=== PATIENT | male | born 1970 | race Caucasian/White ===

== ENCOUNTER 2024-06-17 15:36 | Emergency (ER) | payer BC, OTHER ==
[~2024-06-17] VITALS: Ht 188 cm; Wt 117.9 kg
--- NOTE | 2024-06-17 15:45 | EKG ---
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
[2024-06-17 16:00] VITALS: TEMP 98.5
[2024-06-17 16:10] LABS: BASOPHILS # (AUTO) 0.08 K/uL (0.00-0.20); BASOPHILS % (AUTO) 0.8 % (0.0-5.0); EOSINOPHILS # (AUTO) 0.08 K/uL (0.00-0.70); EOSINOPHILS % (AUTO) 0.8 % (0.0-8.0); HEMATOCRIT 46.4 % (42-54); IMMATURE GRANULOCYTE ABSOLUTE 0.03 K/uL (0-1); LYMPHOCYTES # (AUTO) 2.9 K/uL (1.0-4.8); LYMPHOCYTES % (AUTO) 27.3 % (21.0-51.0); MEAN CORPUSCULAR HEMOGLOBIN 28.1 pg (27.0-33.0); MEAN CORPUSCULAR HGB CONC 32.3 g/dL (32.0-36.0); MEAN CORPUSCULAR VOLUME 87.1 fL (79-99); MONOCYTES # (AUTO) 0.9 K/uL (0.1-1.0); MONOCYTES % (AUTO) 8.1 % (3.0-13.0); NEUTROPHILS # (AUTO) 6.6 K/uL (1.8-7.7); NEUTROPHILS % (AUTO) 62.7 % (40.0-77.0); PLATELET COUNT (AUTO) 236 K/uL (130-400); RED BLOOD CELL COUNT(AUTO) 5.33 MIL/uL (4.50-6.20); RED CELL DISTRIBUTION WIDTH 13.7 % (11.0-15.5); WHITE BLOOD COUNT (AUTO) 10.5 K/uL (4.8-10.8)
--- NOTE | 2024-06-17 16:12 | ERN ---
ED Note History of Present Illness Stated Complaint: BACK PAIN Chief Complaint: Back Pain or Injury Time Seen by MD: 15:42 Dictation: Patient is a 53-year-old male with a past medical history of hypertension, hyperlipidemia, neuropathy who started complaining of stopped chest pain radiating to the back bilateral sides of back. Patient is states that he since the Cardiology but visualized because of his high blood pressure and 1 episode of chest pain in the past where the workup was done and was everything fine. Allergies: Coded Allergies: Sulfa (Sulfonamide Antibiotics) (Unverified Allergy, Unknown, 06/17/24) Past Medical History Past Medical History: Hypertension, Other Additional Past Medical Hx: PERIPHEAL NERVE DISEASE Surgical History: Other Surgical History Other: NECK, BACK, AND EYE SURGERY Review of System Dictation NEGATIVE EXCEPT PER HPI Constitutional: Negative for fever,chills, and weight loss Eyes: Negative for injury, pain,redness, and discharge ENT: Negative for injury,pain or swelling Cardiovascular: Chest pain radiating to the back Respiratory: Negative for shortness of breath, cough, and wheezing, Abdomen/GI: Negative for abdominal pain, nausea, vomiting, diarrhea, and constipation Back: Negative for injury and pain : Negative for injury, bleeding and discharge MS/Extremity: Negative for injury and deformity Skin: Negative for rash, and discoloration Neuro: Negative for headache, weakness, numbness, tingling, and seizure Psych: Negative for suicide ideation, homicidal ideation, and hallucinations Initial Vital Sign VS Vital Signs Date Time Temp Pulse Resp B/P (MAP) Pulse Ox O2 Delivery O2 Flow Rate FiO2 06/17/24 15:42 98.8 69 20 157/85 97 Room Air 0 06/17/24 16:00 21 Physical Exam Dictation General: awake, alert, NAD Head/Face: Normocephalic, atraumatic Eyes: PERRL, EOMI, vision at baseline ENT: oral cavity clear, TMs clear, no signs of infection Neck: Trachea midline, supple, no nuchal rigidity Cardiovascular: RRR, normal S1/S2, No MRGs, no JVD Respiratory: CTAB, no respiratory distress, No rales or wheezes Abdomen: Soft , no tender Skin: Warm, dry, normal turgor, no rash MS/Extremity: Pulses equal, no cyanosis, neurovascular intact, FROM Neuro: COAx4, GCS 15, strength 5/5, CN 2-12 intact, normal cerebellar exam, normal gait, Psych: Normal behavior, mood, and affect normal Results (Laboratory/Radiology) Laboratory/Radiology Laboratory Tests Test 06/17/24 16:01 06/17/24 16:23 06/17/24 17:32 White Blood Count 10.5 K/uL (4.8-10.8) Red Blood Count 5.33 MIL/uL (4.50-6.20) Hemoglobin 15.0 g/dL (14.0-18.0) Hematocrit 46.4 % (42-54) Mean Corpuscular Volume 87.1 fL (79-99) Mean Corpuscular Hemoglobin 28.1 pg (27.0-33.0) Mean Corpuscular Hemoglobin Concent 32.3 g/dL (32.0-36.0) Red Cell Distribution Width 13.7 % (11.0-15.5) Platelet Count 236 K/uL (130-400) Mean Platelet Volume 9.4 fL (7.5-10.5) Immature Granulocyte % (Auto) 0.3 % (0-1) Neutrophils (%) (Auto) 62.7 % (40.0-77.0) Lymphocytes (%) (Auto) 27.3 % (21.0-51.0) Monocytes (%) (Auto) 8.1 % (3.0-13.0) Eosinophils (%) (Auto) 0.8 % (0.0-8.0) Basophils (%) (Auto) 0.8 % (0.0-5.0) Neutrophils # (Auto) 6.6 K/uL (1.8-7.7) Lymphocytes # (Auto) 2.9 K/uL (1.0-4.8) Monocytes # (Auto) 0.9 K/uL (0.1-1.0) Eosinophils # (Auto) 0.08 K/uL (0.00-0.70) Basophils # (Auto) 0.08 K/uL (0.00-0.20) Absolute Immature Granulocyte (auto 0.03 K/uL (0-1) Nucleated Red Blood Cells 0.0 % (0.0-0.19) Sodium Level 141 mmol/L (136-145) Potassium Level 4.4 mmol/L (3.5-5.1) Chloride Level 103 mmol/L (101-111) Carbon Dioxide Level 33 mmol/L (21-32) H Blood Urea Nitrogen 17 mg/dL (7-18) Creatinine 1.0 mg/dL (0.5-1.3) Glomerular Filtration Rate Calc 89 mL/min (>90) Random Glucose 97 mg/dL (70-105) Total Calcium 9.4 mg/dL (8.5-10.1) Total Creatine Kinase 175 U/L (21-232) # Troponin I High Sensitivity 5 ng/L (4-75) < 4 ng/L (4-75) L B-Type Natriuretic Peptide 18 pg/mL (0-100) Troponin I < 0.05 ng/mL (0.00-0.05) EKG Comment: Sinus rhythm in the 60s, right bundle branch block TX 152, QT was 428, ED Course ED Course Orders Procedure Category Date Status Time Vital Signs Per CPOE 06/17/24 Transmitted Routine 15:38 B-Type Natriuretic LAB 06/17/24 Complete Peptide 15:38 Chest 1vw RAD 06/17/24 Resulted 15:38 12 Lead Ekg Tracing- EKG 06/17/24 Complete Technical 15:38 Oxygen By Nc/Pulse Ox CPOE 06/17/24 Transmitted 15:38 Maintain Iv CPOE 06/17/24 Transmitted 15:38 Iv Insertion CPOE 06/17/24 Transmitted 15:38 Cardiac Monitoring CPOE 06/17/24 Transmitted 15:38 Pulse Oximetry With CPOE 06/17/24 Transmitted Vs And Prn 15:38 Cbc With Differential LAB 06/17/24 Complete 15:38 Activity: Br W/Brp CPOE 06/17/24 Transmitted With Assist 15:38 Creatine Kinase, Total LAB 06/17/24 Complete 15:38 Troponin Poc Order LAB 06/17/24 Complete Only 15:38 Bedside Troponin-I LAB.ER 06/17/24 In Process (Poc) 15:38 Basic Metabolic Panel LAB 06/17/24 Complete 15:38 Troponin I High LAB 06/17/24 Complete Sensitivity 15:38 Aspirin 325mg Tab PHA 06/17/24 Complete (Aspirin 325mg Tab) 16:30 Losartan 50 Mg Tablet PHA 06/17/24 Complete (Cozaar 50 Mg Tab) 16:30 Troponin I High LAB 06/17/24 Complete Sensitivity 17:30 12 Lead Ekg Tracing- EKG 06/17/24 Complete Technical 17:22 Current Medications Medications (Trade) Dose Ordered Sig/Hussein Route PRN Reason Start Time Stop Time Status Last Admin Dose Admin Aspirin (Aspirin 325mg Tab) 325 mg ONCE ONCE PO 06/17/24 16:30 06/17/24 16:31 DC 06/17/24 16:19 Losartan Potassium (CozAAR 50 mg TAB) 50 mg ONCE ONCE PO 06/17/24 16:30 06/17/24 16:31 DC 06/17/24 16:19 Vital Signs Date Time Temp Pulse Resp B/P (MAP) Pulse Ox O2 Delivery O2 Flow Rate FiO2 06/17/24 17:32 64 20 134/63 97 Room Air* 0 21 06/17/24 16:43 61 18 136/69 97 Room Air* 0 21 06/17/24 16:00 98.4 69 20 160/82 97 Room Air* 0 21 06/17/24 15:42 98.8 69 20 157/85 97 Room Air 0 Medical Decision Making MDM 53-year-old male with a past medical history of hypertension who started with a suddenly sharp pain radiating to the bilateral upper back. Vital signs was checked and BP systolic was 160/82. Hypertension Hypertensive urgency Non- STEMI Chest pain full cardiac workup Chest x-ray. Antihypertensive ordered. Losartan 50 mg will aspirin 325 mg daily. Cardio workup was within normal limits, troponin negative. EKG show RBBB, patient is asymptomatic. 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 DX & DISP Disposition: Discharge Departure Impression: Primary Impression: Chest pain Additional Impressions: Hypertension, RBBB, Muscle strain Condition: Stable Additional Instructions: RETURN TO ER FOR ANY ACUTE OR WORSENING SYMPTOMS. FOLLOW-UP IN 1-2 DAYS WITH PRIMARY PROVIDER FOR RECHECK OF TODAY'S SYMPTOMS. Referrals: NONE (PCP) Time of Disposition: 18:03 RAJESH MORGAN MD Jun 17, 2024 16:11
--- NOTE | 2024-06-17 16:14 | NUR ---
PATIENT BLOOD PRESSURE ASSESSED IN BOTH ARMS. LEFT 160/82, RIGHT 157/85.
[2024-06-17] MEDS: LoSARTan 50 MG TABLET PO ONE (16:19)
[2024-06-17] MEDS: ASPIRIN 325MG TAB PO ONE (16:19)
[2024-06-17 16:24] LABS: POTASSIUM 4.4 mmol/L (3.5-5.1)
[2024-06-17 16:35] LABS: B-TYPE NATRIURETIC PEPTIDE 18 pg/mL (0-100)
--- NOTE | 2024-06-17 16:45 | HMCIMG ---
PORTABLE CHEST RADIOGRAPH INDICATION: CHEST PAIN COMPARISON: None FINDINGS: laboratory monitor leads overlie the field of view. Heart size is normal. The pulmonary vascularity and tod appear normal. No abnormal pulmonary parenchymal opacity or consolidation identified. No significant pleural effusion noted. No pneumothorax detected. IMPRESSION: No radiographic evidence for any acute cardiopulmonary process.
[2024-06-17 17:32] VITALS: BP 134/63; PULSE 64; RESP 20; O2SAT 97
--- NOTE | 2024-06-17 17:36 | EKG ---
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
== END 2024-06-17 18:13 | disposition home or self-care (01) ==
LOC: EDH 15:36
DX: S29.011A Strain of muscle and tendon of front wall of thorax, initial encounter (principal); R07.89 Other chest pain; I10 Essential (primary) hypertension; I45.10 Unspecified right bundle-branch block; Z88.2 Allergy status to sulfonamides; X58.XXXA Exposure to other specified factors, initial encounter; Y93.89 Activity, other specified; Y92.89 Other specified places as the place of occurrence of the external cause; Y99.8 Other external cause status
CPT/HCPCS: 36415; 71045; 80048; 82550; 83880; 84484; 85025; 93005; 99285

== ENCOUNTER → 2025-01-15 | Outpatient (CLI) | payer OTHER ==
[~2025-01-15] MED LIST: CETI10CA5 PO; IBUP-2077 PO; PANT40TA54 PO; PREG50CA64 PO; PRIM50TA23 PO; ROSUVASTATIN PO; TAMS-55 PO
[2025-01-15 15:27] LABS: IMMATURE GRANULOCYTE ABSOLUTE 0.02 K/uL (0-1); NUCLEATED RED BLOOD CELLS 0.0 % (0.0-0.19); PLATELET COUNT (AUTO) 260 K/uL (130-400); RED BLOOD CELL COUNT(AUTO) 5.17 MIL/uL (4.50-6.20); RED CELL DISTRIBUTION WIDTH 14.0 % (11.0-15.5); WHITE BLOOD COUNT (AUTO) 8.0 K/uL (4.8-10.8)
[2025-01-15 15:38] LABS: INR 0.99 (0.85-1.15)
== END | disposition home or self-care (01) ==
LOC: LAB 14:02
PROVIDERS: ATTEND Internal Medicine Gastroenterology
DX: K92.1 Melena (principal); R12 Heartburn
CPT/HCPCS: 36415; 85025; 85610

== ENCOUNTER 2025-01-17 10:50 | Day surgery (SDC) | payer OTHER ==
[~2025-01-17] VITALS: Ht 188 cm; Wt 108.9 kg
[2025-01-17] VITALS (12 sets, daily range): BP systolic 114–138; BP diastolic 65–91; PULSE 58–77; RESP 15–18; TEMP 97.4–98.2
[~2025-01-17 10:50] MED LIST changes: +0.9%NACL 1000ML 1,000 ML IV ONE; -CETI10CA5 PO; -PANT40TA54 PO; -PREG50CA64 PO; -PRIM50TA23 PO; -ROSUVASTATIN PO; -TAMS-55 PO
[2025-01-17] MEDS ORDERED: PANT40TA54 PO (11:15)
[2025-01-17] MEDS ORDERED: ROSUVASTATIN PO (11:15)
[2025-01-17] MEDS ORDERED: PREG50CA64 PO (11:15)
[2025-01-17] MEDS ORDERED: TAMS-55 PO (11:15)
[2025-01-17] MEDS ORDERED: PRIM50TA23 PO (11:15)
[2025-01-17] MEDS ORDERED: CETI10CA5 PO (11:15)
[2025-01-17] MEDS ORDERED: LIDOCAINE PF 100MG/5ML (2%) SYRINGE 5ML ONE (14:37)
[2025-01-23] MEDS ORDERED: ROSU20TA98 PO (19:41)
[2025-01-23] MEDS ORDERED: PREG50CA64 PO (19:41)
[2025-01-23] MEDS ORDERED: PRIM50TA23 PO (20:40)
== END 2025-01-17 16:25 | disposition home or self-care (01) ==
LOC: DAH 10:50
PROVIDERS: ATTEND Internal Medicine Gastroenterology
DX: K92.1 Melena (principal); R12 Heartburn; K29.50 Unspecified chronic gastritis without bleeding; K31.7 Polyp of stomach and duodenum; K21.9 Gastro-esophageal reflux disease without esophagitis; K31.89 Other diseases of stomach and duodenum; K92.0 Hematemesis; K64.0 First degree hemorrhoids; I10 Essential (primary) hypertension; E78.5 Hyperlipidemia, unspecified; G47.33 Obstructive sleep apnea (adult) (pediatric); Z99.89 Dependence on other enabling machines and devices; Z20.822 Contact with and (suspected) exposure to COVID-19; Z98.1 Arthrodesis status; Z98.890 Other specified postprocedural states; Z79.899 Other long term (current) drug therapy
CPT/HCPCS: 43239; 45378; 88305; 88312; J7030; J2003; J2704 ×2; J3490; A4620; A4215

== ENCOUNTER → 2025-01-29 | Outpatient (CLI) | payer OTHER ==
[~2025-01-29] MED LIST changes: -0.9%NACL 1000ML 1,000 ML IV ONE; +CETI10CA5 PO; -IBUP-2077 PO; +PANT40TA54 PO; +PREG50CA64 PO; +PRIM50TA23 PO; +ROSU20TA98 PO; +ROSUVASTATIN PO; +TAMS-55 PO
[2025-01-29 10:15] LABS: IMMATURE GRANULOCYTE ABSOLUTE 0.03 K/uL (0-1); NUCLEATED RED BLOOD CELLS 0.0 % (0.0-0.19); PLATELET COUNT (AUTO) 203 K/uL (130-400); RED BLOOD CELL COUNT(AUTO) 5.21 MIL/uL (4.50-6.20); RED CELL DISTRIBUTION WIDTH 14.2 % (11.0-15.5); WHITE BLOOD COUNT (AUTO) 7.5 K/uL (4.8-10.8)
== END | disposition home or self-care (01) ==
LOC: LAB 08:58
PROVIDERS: ATTEND Family Medicine
DX: N40.1 Benign prostatic hyperplasia with lower urinary tract symptoms (principal); K76.89 Other specified diseases of liver
CPT/HCPCS: 36415; 82105; 82378; 84153; 84154; 85025; 86316

== ENCOUNTER → 2025-02-01 | Outpatient (CLI) | payer OTHER | END | disposition home or self-care (01) | LOC: LAB 10:49 | PROVIDERS: ATTEND Internal Medicine Gastroenterology | DX: K76.89 Other specified diseases of liver (principal) | CPT/HCPCS: 36415; 86682; 86753 ==

== ENCOUNTER → 2025-02-22 | Outpatient (CLI) | payer OTHER ==
--- NOTE | 2025-02-22 14:47 | HMCIMG ---
CLINICAL HISTORY: RUQ PAIN TECHNIQUE: Complete abdominal ultrasound was performed using lornezo-scale and color Doppler imaging where appropriate. COMPARISON: Previous [facility] 25[facility]01.25 FINDINGS: Liver: The liver is mildly enlarged, measuring approximately 18.3 cm in craniocaudal dimension. An anechoic cystic lesion measuring 3.7 x 3.1 x 3.0 cm with thin eccentric septae seen in right lobe of liver. Gallbladder and Biliary System: The gallbladder appears normal in contour with no evidence of cholelithiasis or wall thickening. Mild intraluminal sludge seen. Common bile duct measures 4.8 mm. Pancreas: The pancreas appears normal in size and echotexture. No focal lesion or peripancreatic collection is identified. Spleen: The spleen is mildly enlarged in size (13.4 cm). A focal hyperechoic lesion measuring 2.0 x 1.9 x 1.5 cm noted in splenic parenchyma without significant vascularity on color doppler. Kidneys:Both kidneys are normal in size and echogenicity. A small cortical cyst is noted in the upper pole of the right kidney. No hydronephrosis or renal calculus is seen. Aorta and Inferior Vena Cava: Both the abdominal aorta and inferior vena cava appear normal in caliber and course. IMPRESSION: 1. Mildly enlarged liver measuring 18.3 cm in craniocaudal dimension, with a 3.7 x 3.1 x 3.0 cm simple cyst containing thin eccentric septae in the right lobe. 2. Mildly enlarged spleen (13.4 cm) with a 2.0 x 1.9 x 1.5 cm hyperechoic lesion, likely hemangioma, without significant vascularity on color Doppler. 3. Mild intraluminal gallbladder sludge. Common bile duct measures 4.8 mm. 4. Small cortical cyst in the upper pole of the right kidney. 5. No evidence of cholelithiasis, gallbladder wall thickening, or hydronephrosis. /[place]
== END | disposition home or self-care (01) ==
LOC: RAH 06:56
PROVIDERS: ATTEND Internal Medicine Gastroenterology
DX: N28.1 Cyst of kidney, acquired (principal); K82.8 Other specified diseases of gallbladder; R16.2 Hepatomegaly with splenomegaly, not elsewhere classified; K76.89 Other specified diseases of liver; D73.89 Other diseases of spleen; R10.11 Right upper quadrant pain
CPT/HCPCS: 76700

== ENCOUNTER → 2025-02-27 | Outpatient (CLI) | payer OTHER ==
--- NOTE | 2025-02-27 14:26 | HMCIMG ---
Examination Hepatobiliary study History ruq OUTPATIENT 54YR MALE // DX: RIGHT UPPER QUADRANT PAIN Pt c/o RUQ Pain Technique Tc-99m mebrofenin were administered intravenously followed by acquisition of planar images of the abdomen. Findings Following administration of radiotracer, there is prompt appearance of normal hepatic contours, followed by appearance of activity in unremarkable appearing bile ducts. There is prompt filling of the gallbladder. The study is negative for acute cholecystitis. IMPRESSION: Negative HIDA study. No evidence of cholecystitis. /[place]
== END | disposition home or self-care (01) ==
LOC: RAH 07:29
PROVIDERS: ATTEND Internal Medicine Gastroenterology
DX: R10.11 Right upper quadrant pain (principal); R93.2 Abnormal findings on diagnostic imaging of liver and biliary tract
CPT/HCPCS: 78227; A9537

== ENCOUNTER 2025-03-09 10:28 | Day surgery (SDC) | payer OTHER ==
[2025-03-06 09:31] LABS: IMMATURE GRANULOCYTE ABSOLUTE 0.02 K/uL (0-1); NUCLEATED RED BLOOD CELLS 0.0 % (0.0-0.19); PLATELET COUNT (AUTO) 209 K/uL (130-400); RED BLOOD CELL COUNT(AUTO) 5.11 MIL/uL (4.50-6.20); RED CELL DISTRIBUTION WIDTH 14.2 % (11.0-15.5); WHITE BLOOD COUNT (AUTO) 7.0 K/uL (4.8-10.8)
[2025-03-06 09:33] LABS: APPEARANCE,URINE CLEAR (CLEAR); GLUCOSE, URINE (UA) NEGATIVE (NEGATIVE); LEUKOCYTE ESTERASE ,URINE NEGATIVE Leu/uL (NEGATIVE); NITRATE,URINE NEGATIVE (NEGATIVE); OCCULT BLOOD,URINE NEGATIVE (NEGATIVE)
[2025-03-06 09:40] LABS: ASPARTATE AMINOTRANSFERASE 18.0 U/L (10-37); CREATININE 1.0 mg/dL (0.5-1.3); GLOMERULAR FILTR. RATE CALC 89.0 mL/min (>90); GLUCOSE,RANDOM 85.0 mg/dL (70-105); SODIUM SERUM 139.0 mmol/L (136-145); TOTAL PROTEIN, SERUM 6.8 g/dL (6.0-8.3); UREA NITROGEN, BLOOD 17.0 mg/dL (7-18)
[2025-03-06 09:42] VITALS: BP 110/62; PULSE 48; RESP 18; TEMP 97.5
[2025-03-06 09:42] LABS: INR 0.97 (0.85-1.15)
[2025-03-06 09:49] LABS: ADD UA MICROSCOPIC YES
[2025-03-06 09:51] LABS: SQUAMOUS EPITHELIAL CELL,UR RARE /HPF (0-2)
[2025-03-09] VITALS (16 sets, daily range): BP systolic 123–145; BP diastolic 69–82; PULSE 63–84; RESP 13–19; TEMP 97.3–97.7
[~2025-03-09] VITALS: Ht 188 cm; Wt 111.8 kg
[~2025-03-09 10:28] MED LIST changes: -CETI10CA5 PO; +FEXO180T94 PO; -ROSUVASTATIN PO
[2025-03-09] MEDS ORDERED: LACTATED RINGERS 1000ML 1,000 ML IV ONE (10:31)
[2025-03-09] MEDS ORDERED: PROMETHAZINE HCL 25 MG/ML 1ML AMPULE IM PRN (11:00)
--- NOTE | 2025-03-09 13:50 | OP ---
Operative Note: DATE OF PROCEDURE: 03/09/25 SURGEON: PATY RIVAS MD CLINICAL LAB CLERK: [] PREOPERATIVE DIAGNOSIS: Bilateral inguinal hernias, umbilical hernia POSTOPERATIVE DIAGNOSIS: Right direct inguinal hernia, left indirect inguinal hernia, 1cm incarcerated umbilical hernia anesthesia: GENERAL endotracheal Anesthesiologist: ALBERTO Nassar CRNA PROCEDURE: Robotic bilateral inguinal hernia repairs with mesh, robotic umbilical hernia repair INDICATIONS: Symptomatic bilateral hernias, symptomatic umbilical hernia Specimens removed: None Devices left in place: [place] 3D max right and left 13X8CM inguinal mesh see implant report for details DESCRIPTION OF PROCEDURE: Patient is brought to the operating room placed on the operating table in a supine position. Once general endotracheal anesthesia is achieved patient is placed in supine position and patient's abdomen and perineum are prepped and draped in sterile fashion. We then proceeded to create a transverse incision at the left upper quadrant at Andrews's point. And under direct visualization with Optiview went through the abdominal wall and entered the abdominal cavity. Obtain a pneumoperitoneum. Under direct visualization we proceeded to introduce two 8 mm trochars one in the right upper quadrant and one at the epigastric region just to the left of the midline and placed another 8 mm where we had a 5 mm trocar of insertion and switched it out. Placed patient in Trendelenburg and brought the robot and docked it. We then evaluated the groins there was bilateral inguinal hernias. We then proceeded to create peritoneal flap starting laterally at the anterior iliac spine and going medially until the midline at the suprapubic region. And then brought the peritoneal flap down to expose the inguinal canal took down the hernia sac. And Started peritoneal flap going inferiorly so that are mesh would not roll up. We did this on both sides. The right inguinal region had a direct hernia that was medial to the inferior epigastric vessels. In the left inguinal region had indirect inguinal hernia. We identified the cord structures and isolated them and preserved them. We then placed the right inguinal 13*8cm mesh and then a left inguinal 13x8cm mesh. Each 1 was secured medially at the lacunar ligament using [place] suture. And laterally to the abdominal wall to avoid migration of the mesh. We then proceeded to close the peritoneal flap using running 2 OV lock suture. All needles were taken out. No bleeding was seen. We then turned our attention to the umbilicus. Down a peritoneal flap and expose the umbilical hernia that was containing incarcerated fat that was reduced. We measured the hernia 1 cm. Because it was so small decision is made to just do a primary repair. Was closed in running fashion with 0 locking suture X2 and then we closed the peritoneal flap with a running 2-0 V lock. All instruments were removed. Robot was undocked. Patient is flat. Skin incisions was closed with 4-0 Monocryl running subcuticular fashion and Dermabond was applied over top. Patient tolerated the procedure well all counts were correct x2 at the end of the procedure. PATY RIVAS MD Mar 09, 2025 13:50
== END 2025-03-09 14:35 ==
LOC: DAH 10:28
PROVIDERS: ATTEND Student in an Organized Health Care Education/Training Program
DX: K42.0 Umbilical hernia with obstruction, without gangrene (principal); K40.20 Bilateral inguinal hernia, without obstruction or gangrene, not specified as recurrent; I10 Essential (primary) hypertension; G47.33 Obstructive sleep apnea (adult) (pediatric); E66.9 Obesity, unspecified; G62.9 Polyneuropathy, unspecified; Z79.01 Long term (current) use of anticoagulants; Z68.31 Body mass index [BMI] 31.0-31.9, adult; Z88.8 Allergy status to other drugs, medicaments and biological substances; Z86.718 Personal history of other venous thrombosis and embolism; Z79.899 Other long term (current) drug therapy
CPT/HCPCS: 80053; 85025; 85610; 85730; 81001; 36415; 49650; 49592; A6260; C1781 ×2; A4663; J7030; A4344; J0690 ×3; J7120; J3010; J0665 ×2; J2405; C1769; A4930; C1713; A4215; A4213; A4222; A4221; A4216; A4223 ×2; A4600